=== PATIENT | male | born 1965 | race Caucasian/White ===

== ENCOUNTER 2017-02-02 17:04 | Emergency (ER) | payer BC | END 2017-02-02 17:45 | disposition left against medical advice (07) | LOC: MW.ED 17:04 | DX: Z53.21 Procedure and treatment not carried out due to patient leaving prior to being seen by health care provider (principal) ==

== ENCOUNTER 2017-02-04 06:23 | Day surgery (SDC) | payer BC, OTHER ==
[~2017-02-04 06:23] MED LIST: Lactated Ringers 1,000 ML IV SCH; Sodium Chloride 0.9% 10 ML Syringe FLUSH PRN; Sodium Chloride 0.9% 2.5 ML Syringe FLUSH PRN; ceFAZolin 1 GM Vial IM ONE; ceFAZolin 1 GM in Premix Bag 1 BAG IV ONE
--- NOTE | 2017-02-04 07:05 | PCM.PREANE ---
Preanesthetic Assessment - Anesthesia/Transfusion/Family Hx Anesthesia History: Prior Anesthesia Without Reaction Family History of Anesthesia Reaction: No Transfusion History: No Prior Transfusion(s) Intubation History: Unknown - Review of Systems General: No Symptoms Pulmonary: No Symptoms Cardiovascular: No Symptoms Gastrointestinal: No Symptoms Neurological: No Symptoms Other: Reports: None - Physical Assessment NPO Status Date: 02/03/17 NPO Status Time: 23:30 O2 Sat by Pulse Oximetry: 98 Respiratory Rate: 16 Vital Signs: Last Vital Signs Temp 37.0 C 02/04/17 06:30 Pulse 90 02/04/17 06:30 Resp 16 02/04/17 06:30 BP 123/73 02/04/17 06:30 Pulse Ox 98 02/04/17 06:30 Height: 1.68 m Weight: 79.379 kg ASA Class: 2 Mental Status: Alert & Oriented x3 Airway Class: Mallampati = 2 Dentition: Reports: Normal Dentition (grinded edges) Thyro-Mental Finger Breadths: 3 Mouth Opening Finger Breadths: 3 ROM/Head Extension: Limited/Partial Lungs: Clear to Auscultation, Normal Respiratory Effort Cardiovascular: Regular Rate, Regular Rhythm - Lab Values: Laboratory Last Values POC Glucose 96 mg/dL (60-110) 02/04/17 06:48 - Allergies Allergies/Adverse Reactions: Allergies Allergy/AdvReac Type Severity Reaction Status Date / Time No Known Allergies Allergy Verified 02/03/17 14:41 - Blood Blood Available: No - Anesthesia Plan Pre-Op Medication Ordered: None - Acknowledgements Anesthesia Type Planned: General Anesthesia Pt an Appropriate Candidate for the Planned Anesthesia: Yes Alternatives and Risks of Anesthesia Discussed w Pt/Guardian: Yes Pt/Guardian Understands and Agrees with Anesthesia Plan: Yes PreAnesthesia Questionnaire HEENT History: Reports: Allergic Rhinitis Cardiovascular History: Reports: Hypertension Respiratory History: Reports: Asthma, COPD, SOB Gastrointestinal History: Reports: Colon Polyp, GERD Genitourinary History: Reports: Other (See Below) Other Genitourinary History: currently has kidney stone Musculoskeletal History: Reports: Fracture Other Musculoskeletal History: hx of fx right hand Neurological History: Reports: None Psychiatric History: Reports: None Endocrine/Metabolic History: Reports: Diabetes, Type II Hematologic History: Reports: None Immunologic History: Reports: None Oncologic (Cancer) History: Reports: None Dermatologic History: Reports: None - Past Surgical History Head Surgeries/Procedures: Reports: None GI Surgical History: Reports: Colonoscopy Male Surgical History: Reports: None - SUBSTANCE USE Smoking Status *Q: Former Smoker (quit smoking 10 years ago) Tobacco Use Within Last Twelve Months: Smokeless Tobacco Recreational Drug Use History: No - HOME MEDS Home Medications: Home Meds Esomeprazole Magnesium [Nexium] 20 mg PO DAILY 12/03/14 [History] Montelukast [Singulair] 10 mg PO DAILY 12/03/14 [History] Albuterol Sulfate [Proair Hfa] 2 puff INH QID PRN 02/10/16 [History] Budesonide/Formoterol [Symbicort 160-4.5 MCG] 2 puff INH BID 02/10/16 [History] metFORMIN HCl [Metformin HCl] 500 mg PO BIDMEALS 02/10/16 [History] Lisinopril 20 mg PO BID 02/03/17 [History] - CURRENT (IN HOUSE) MEDS Current Meds: Current Medications Lactated Ringer's (Ringers, Lactated) 1,000 mls @ 100 mls/hr IV ASDIRECTED VALERIE Sodium Chloride (Saline Flush) 10 ml FLUSH ASDIRECTED PRN PRN Reason: Keep Vein Open Sodium Chloride (Saline Flush) 2.5 ml FLUSH ASDIRECTED PRN PRN Reason: Keep Vein Open Discontinued Medications Cefazolin Sodium/Dextrose 1 gm (/ Premix) 50 mls @ 100 mls/hr IV ONCALL ONE Stop: 02/04/17 00:30
[2017-02-04] MEDS ORDERED: Midazolam 1 MG/ML 2 ML SDV ONE (07:22)
[2017-02-04] MEDS ORDERED: fentaNYL 100 MCG/2 ML SDV ONE ×2 (07:22→08:42)
[2017-02-04] MEDS ORDERED: Propofol 200 MG/20 ML SDV ONE ×2 (07:22→08:57)
[2017-02-04] MEDS ORDERED: Ondansetron 4 MG/2 ML SDV ONE (07:25)
[2017-02-04] MEDS ORDERED: Succinylcholine/Normal Saline 200 MG/10 ML Syringe ONE (07:25)
[2017-02-04] MEDS ORDERED: Dexamethasone 4 MG/ML 5 ML MDV ONE (07:25)
[2017-02-04] MEDS ORDERED: fentaNYL 100 MCG/2 ML SDV IVPUSH PRN (09:23)
--- NOTE | 2017-02-04 09:38 | PCM.POSTAN ---
POST ANESTHESIA ASSESSMENT - MENTAL STATUS Mental Status: Oriented, Somnolent (able to react to verbal or touch but remains drowsy. Will be transferred to phase II soon.) - RESPIRATORY Respiratory Status: Respiratory Rate WNL, Airway Patent, O2 Saturation Stable - CARDIOVASCULAR CV Status: Pulse Rate WNL, Blood Pressure Stable - GASTROINTESTINAL GI Status: No Symptoms - POST OP HYDRATION Hydration Status: Adequate & Stable
--- NOTE | 2017-02-04 09:44 | OR ---
SURGEON: Mariya Cortes M.D. DATE OF PROCEDURE: 02/04/2017 PREOPERATIVE DIAGNOSIS: A 1.3 cm right renal pelvis stone. POSTOPERATIVE DIAGNOSIS: A 1.3 cm right renal pelvis stone. OPERATION: ESWL plus cystoscopy and double-J stent placement. DESCRIPTION OF PROCEDURE: The patient is given general anesthesia. He is on the lithotripsy table. Position of the patient was adjusted, so the stone could be treated and eventually received a total of 2600 shocks. Looking at the stone during the treatment at different stages, it appeared that the shape of the stone is significantly different. Some of the stone pieces actually were seen coming through when the cystoscopy was done. With that done, the patient was then placed in dorsal lithotomy position. Cystoscopy was done and that was normal. A guidewire was advanced in the right ureter all the way up into the renal pelvis over which a 6-Turkmen 26 cm double-J stent was placed. Position was confirmed fluoroscopy. The bladder was emptied and the string at the end of the stent was taped to the outside of the penis. PLAN: I will see the patient in my office in one week. We will repeat his CT scan to see where the stone fragments are and how big they are and then go from there. FELIX / JACK /[id number]
[2017-02-04 10:59] VITALS: BP 129/85
== END 2017-02-04 10:47 | disposition home or self-care (01) ==
LOC: MW.SDS 06:23
PROVIDERS: ATTEND Urology
DX: N20.0 Calculus of kidney (principal); J44.9 Chronic obstructive pulmonary disease, unspecified; E11.9 Type 2 diabetes mellitus without complications; I10 Essential (primary) hypertension; K21.9 Gastro-esophageal reflux disease without esophagitis; Z87.442 Personal history of urinary calculi; Z86.010 Personal history of colon polyps; Z87.891 Personal history of nicotine dependence; Z79.84 Long term (current) use of oral hypoglycemic drugs; Z79.51 Long term (current) use of inhaled steroids; Z79.899 Other long term (current) drug therapy; Z98.890 Other specified postprocedural states
CPT/HCPCS: 50590; 52332; 82962; C2625; J1100; J2250; J2405; J3010; 00873; J2704

== ENCOUNTER 2017-02-18 06:22 | Day surgery (SDC) | payer BC ==
[~2017-02-18 06:22] MED LIST changes: -Sodium Chloride 0.9% 10 ML Syringe FLUSH PRN; -Sodium Chloride 0.9% 2.5 ML Syringe FLUSH PRN; -ceFAZolin 1 GM Vial IM ONE; -ceFAZolin 1 GM in Premix Bag 1 BAG IV ONE
[2017-02-18] MEDS ORDERED: Lidocaine 2% 5 ML SDV ONE (07:08)
[2017-02-18] MEDS ORDERED: Propofol 200 MG/20 ML SDV ONE (07:08)
[2017-02-18] MEDS ORDERED: Midazolam 1 MG/ML 2 ML SDV ONE (07:08)
--- NOTE | 2017-02-18 07:33 | PCM.PREANE ---
Preanesthetic Assessment - Anesthesia/Transfusion/Family Hx Anesthesia History: Prior Anesthesia Without Reaction Family History of Anesthesia Reaction: No Transfusion History: No Prior Transfusion(s) Intubation History: Unknown - Review of Systems General: No Symptoms Pulmonary: No Symptoms Cardiovascular: No Symptoms Neurological: No Symptoms Other: Reports: None - Physical Assessment NPO Status Date: 02/17/17 O2 Sat by Pulse Oximetry: 96 Respiratory Rate: 16 Vital Signs: Last Vital Signs Temp 37.1 C 02/18/17 06:58 Pulse 87 02/18/17 06:58 Resp 16 02/18/17 06:58 BP 114/85 02/18/17 06:58 Pulse Ox 96 02/18/17 06:58 Height: 1.68 m Weight: 78.018 kg ASA Class: 2 Mental Status: Alert & Oriented x3 Airway Class: Mallampati = 2 Dentition: Reports: Normal Dentition ROM/Head Extension: Full Lungs: Clear to Auscultation, Normal Respiratory Effort Cardiovascular: Regular Rate, Regular Rhythm - Allergies Allergies/Adverse Reactions: Allergies Allergy/AdvReac Type Severity Reaction Status Date / Time No Known Allergies Allergy Verified 02/16/17 14:52 - Anesthesia Plan Pre-Op Medication Ordered: None - Acknowledgements Anesthesia Type Planned: MAC Pt an Appropriate Candidate for the Planned Anesthesia: Yes Alternatives and Risks of Anesthesia Discussed w Pt/Guardian: Yes Pt/Guardian Understands and Agrees with Anesthesia Plan: Yes PreAnesthesia Questionnaire HEENT History: Reports: Allergic Rhinitis Cardiovascular History: Reports: Hypertension Respiratory History: Reports: Asthma, COPD Gastrointestinal History: Reports: Colon Polyp Other Gastrointestinal History: dysphagia Genitourinary History: Reports: Renal Calculus Other Genitourinary History: currently has kidney stone Musculoskeletal History: Reports: Fracture Other Musculoskeletal History: hx of fx hand Neurological History: Reports: None Psychiatric History: Reports: None Endocrine/Metabolic History: Reports: Diabetes, Type II Hematologic History: Reports: None Immunologic History: Reports: None Oncologic (Cancer) History: Reports: None Dermatologic History: Reports: None - Past Surgical History GI Surgical History: Reports: Colonoscopy Male Surgical History: Reports: Lithotripsy (ESWL) - SUBSTANCE USE Smoking Status *Q: Current Every Day Smoker Tobacco Use Within Last Twelve Months: Smokeless Tobacco Recreational Drug Use History: No - HOME MEDS Home Medications: Home Meds Esomeprazole Magnesium [Nexium] 20 mg PO DAILY 12/03/14 [History] Montelukast [Singulair] 10 mg PO DAILY 12/03/14 [History] Albuterol Sulfate [Proair Hfa] 2 puff INH QID PRN 02/10/16 [History] Budesonide/Formoterol [Symbicort 160-4.5 MCG] 2 puff INH BID 02/10/16 [History] metFORMIN HCl [Metformin HCl] 500 mg PO BIDMEALS 02/10/16 [History] Lisinopril 20 mg PO BID 02/03/17 [History] Hydrocodone/Acetaminophen [Hydrocodon-Acetaminophen 5-325] 1 tab PO Q4H PRN [History] Tamsulosin HCl 0.4 mg PO BEDTIME 02/16/17 [History] - CURRENT (IN HOUSE) MEDS Current Meds: Current Medications Lactated Ringer's (Ringers, Lactated) 1,000 mls @ 125 mls/hr IV ASDIRECTED VALERIE Last Admin: 02/18/17 06:56 Dose: 125 mls/hr Discontinued Medications Lidocaine (Xylocaine-Mpf 2%) Confirm Administered Dose 10 ml .ROUTE .STK-MED ONE Stop: 02/18/17 07:09 Midazolam HCl (Versed 1 Mg/Ml) Confirm Administered Dose 2 mg .ROUTE .STK-MED ONE Stop: 02/18/17 07:09 Propofol (Diprivan 20 Ml) Confirm Administered Dose 400 mg .ROUTE .STK-MED ONE Stop: 02/18/17 07:09
[2017-02-18] MEDS ORDERED: Lactated Ringers 1,000 ML IV SCH (08:15)
--- NOTE | 2017-02-18 08:15 | PCM.OPNOTE ---
- General Post-Op/Procedure Note Date of Surgery/Procedure: 02/18/17 Operative Procedure(s): Esophagogastroduodenoscopy with gastric and mid esophageal biopsies. 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 Mild gastritis. Anesthesia Technique: MAC (ASA II) Primary Surgeon: Rodrigue Topete Condition: Good Free Text/Narrative:: Dictation [id number] CPT CODE [id number]
--- NOTE | 2017-02-18 08:24 | OR ---
SURGEON: Rodrigue Topete M.D. DATE OF PROCEDURE: 02/18/2017 PROCEDURE PERFORMED: Esophagogastroduodenoscopy with biopsies of the antrum and the midesophagus. ANESTHESIA: MAC. ASA CLASSIFICATION: II. PREOPERATIVE DIAGNOSIS: Progressive dysphagia with odynophagia. POSTOPERATIVE DIAGNOSES: 1. 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 2. Mild gastritis. DESCRIPTION OF PROCEDURE: The patient was taken to the endoscopy room and positioned on the endoscopy table in the supine position. Time-out was called for appropriate identification of the patient and procedure. Monitored anesthesia care was provided. A bite block was placed between the patient's teeth. The gastroscope was inserted through the bite block, into the mouth, and advanced through the oropharynx and into the esophagus. An esophageal tumor was noted beginning 28 cm from the incisors and extending to 35 cm. This ended just above the GE junction. The scope was able to traverse this area, and I was able to advance it through the tumor, into the stomach, and subsequently into the duodenum. Examination was carried out in a retrograde fashion. The duodenum shows no acute inflammatory changes. The stomach shows mild gastritis. Antral biopsies were obtained to look for the presence of Helicobacter pylori. The gastroscope was retroflexed to visualize the proximal stomach. No lesions were identified proximally. The gastroscope was then straightened and slowly withdrawn after obtaining biopsies of the antrum. Once the gastroscope was positioned in the body of the tumor, biopsies of this area were also obtained. No significant bleeding was noted, but it is a very friable mass. It does involve the entire circumference of the esophageal lumen. After those biopsies were obtained, the gastroscope was slowly withdrawn. The proximal esophagus shows no lesions. The vocal cords had been visualized as the scope was inserted and noted to move symmetrically. No vocal cord lesions were identified. The gastroscope was then removed with the patient having tolerated the procedure well. He was taken to recovery room in a stable condition. JEAN PAUL SANTIAGO /[id number]
--- NOTE | 2017-02-18 08:36 | PCM48HPAN ---
Post Anesthesia Note - EVALUATION WITHIN 48HRS OF ANESTHETIC Vital Signs in Normal Range: Yes Patient Participated in Evaluation: Yes Respiratory Function Stable: Yes Airway Patent: Yes Cardiovascular Function Stable: Yes Hydration Status Stable: Yes Pain Control Satisfactory: Yes Nausea and Vomiting Control Satisfactory: Yes Mental Status Recovered: Yes
--- NOTE | 2017-02-18 08:36 | PCM.POSTAN ---
POST ANESTHESIA ASSESSMENT - MENTAL STATUS Mental Status: Alert, Oriented - RESPIRATORY Respiratory Status: Respiratory Rate WNL, Airway Patent, O2 Saturation Stable - CARDIOVASCULAR CV Status: Pulse Rate WNL, Blood Pressure Stable - GASTROINTESTINAL GI Status: No Symptoms - POST OP HYDRATION Hydration Status: Adequate & Stable
[2017-02-18 09:00] VITALS: BP 110/76
== END 2017-02-18 08:38 | disposition home or self-care (01) ==
LOC: MW.SDS 06:22
PROVIDERS: ATTEND Surgery
DX: C15.4 Malignant neoplasm of middle third of esophagus (principal); K29.50 Unspecified chronic gastritis without bleeding; J44.9 Chronic obstructive pulmonary disease, unspecified; E11.9 Type 2 diabetes mellitus without complications; K21.9 Gastro-esophageal reflux disease without esophagitis; I10 Essential (primary) hypertension; F17.290 Nicotine dependence, other tobacco product, uncomplicated; Z87.440 Personal history of urinary (tract) infections; Z86.010 Personal history of colon polyps; Z79.51 Long term (current) use of inhaled steroids; Z79.84 Long term (current) use of oral hypoglycemic drugs; Z79.899 Other long term (current) drug therapy; Z98.890 Other specified postprocedural states
CPT/HCPCS: 43239; J2250; J7120; 82962; 88305; 88312; J2704